=== PATIENT | female | born 1965 | race Caucasian/White ===

== ENCOUNTER 2016-07-04 21:05 | Inpatient (IN) | payer OTHER ==
[~2016-07-04] VITALS: Ht 162.6 cm; Wt 133.8 kg
[2016-07-04 21:18] VITALS: BP 107/65
[2016-07-04] MEDS ORDERED: NACL 0.9% 1,000 ML IV ONE (23:25)
[2016-07-04] MEDS ORDERED: ONDANSETRON 4 MG/2 ML VIAL IVP ONE (23:25)
--- NOTE | 2016-07-04 23:30 | NUR ---
51 Y/O F W/C/O HIGH BLOOD SUGAR , N/V, GEN WEAKNESS, HEADACHE SINCE THURSDAY , SEEN BY PMD LAST THURSDAY. PT ON MONITOR, VSS. RUTH ACUÑA MADE AWARE.
--- NOTE | 2016-07-04 23:30 | NUR ---
Beryl richard in ED - 07/05/16 at 0003 by MARYCRUZ 51 y/o F BIBA C/O ALOC, LOW BP, WITH FENTANYL AND LIDOCAINE PATCHES AND PARAMEDICS REMOVED, BREATHING TREATMENT WAS GIVEN ENROUTE, BS 160 MG/DL. ER MD AND RT AT BEDSIDE.
--- NOTE | 2016-07-04 23:30 | NUR ---
PATIENT TO ER BED 4.
--- NOTE | 2016-07-04 23:35 | NUR ---
PATIENT BEING EVALUATED BY DR. HAWK.
[2016-07-05] MEDS ORDERED: KCL 20 MEQ/WATER INJ PREMIX 100 ML IV ONE (00:20)
[2016-07-05] MEDS ORDERED: MORPHINE SULFATE 4 MG/ML SYR IVP ONE (01:00)
[2016-07-05] MEDS ORDERED: KETOROLAC 30 MG/ML VIAL IVP ONE (01:10)
[2016-07-05] MEDS ORDERED: cefTRIAXone 2,000 MG in DEXTROSE 5% 100 ML IV ONE (03:05)
[2016-07-05] MEDS ORDERED: cefTRIAXone 2,000 MG VIAL ONE (03:27)
[2016-07-05] MEDS ORDERED: LORazepam 2 MG/ML VIAL IVP PRN (03:40)
[2016-07-05] MEDS ORDERED: ONDANSETRON 4 MG/2 ML VIAL IVP PRN (03:40)
[2016-07-05] MEDS ORDERED: HYDROcodone/APAP 5/325 MG 1 TAB TAB PO PRN (03:40)
[2016-07-05] MEDS ORDERED: DEXTROSE 50% 50 ML SYR IVP PRN (03:40)
[2016-07-05] MEDS ORDERED: POTASSIUM CHLORIDE 20% 40 MEQ/15 ML UDC PO SCH (03:45)
--- NOTE | 2016-07-05 03:52 | NUR ---
Patient will be admitted to care of DR TOIBAS. Admited to MED SURG. Will go to [id number]. Belongings list completed. Report to GLADIS TANG.
--- NOTE | 2016-07-05 04:09 | NUR ---
PT TRASFERRED TO MED SURG ROOM 109 A VIA WHEEL CHAIR BY EMT. NO S/S OF DISTRESS NOTED.
[2016-07-05 04:10] VITALS: BP 141/79
--- NOTE | 2016-07-05 04:10 | NUR ---
Admitted from ER , with chief complaint of GENERALIZED WEAKNESS, HEADACHE, HYPERGLYCEMIA 51 y/o, Female, Cooperative, AOX4, ABLE TO VERBALIZE NEEDS. PT C/O HEADACHE. SEE PAIN ASSESSMENT. WILL MEDICATE ORDERED. NO C/O CHEST PAIN, SOB OR S/S OF ACUTE DISTRESS. IV ACCESS ASYMPTOMATIC, PATENT AND INTACT. IVF INFUSING WELL. DISCUSSED AND REVIEWED PLAN OF CARE WITH PT, PT VERBALIZES UNDERSTANDING. oriented to call light, bed, phone,television, bathroom, smoking policy, visiting hours, procedures, ID bracelet on. Belongings list checked. SAFETY MEASURES ENSURED. CALL LIGHT WITHIN REACH. WILL CONTINUE TO MONITOR.
[2016-07-05] MEDS: NACL 0.9% 1,000 ML IV SCH ×3 (05:13→18:24)
--- NOTE | 2016-07-05 05:14 | NUR ---
POTASSIUM ADMINISTERED WITH EDUCATION, PT VERBALIZES UNDERSTANDING AND TOLERATED MED WELL. IVF INFUSING WELL. PT RESTING WELL. SAFETY MEASURES ENSURED. CALL LIGHT WITHIN REACH. WILL CONTINUE TO MONITOR.
--- NOTE | 2016-07-05 05:22 | NUR ---
PT C/O HEADACHE. SEE PAIN ASSESSMENT. MEDICATED WITH APAP. PT TOLERATED WELL. WILL CONTINUE TO MONITOR.
[2016-07-05] MEDS: ACETAMINOPHEN 325 MG TAB PO PRN ×3 (05:24→15:38)
[2016-07-05] MEDS: BLOOD GLUCOSE MONITORING 1 DEV DEV FS SCH ×5 (06:26→20:45)
[2016-07-05] MEDS: INSULIN LISPRO SLIDING SCALE 100 UNITS/ML VIAL SUBQ PRN ×3 (06:27→20:50)
--- NOTE | 2016-07-05 07:32 | NUR ---
RECEIVED REPORT FROM DAYSHIFT NURSE. CONDITION STABLE.
--- NOTE | 2016-07-05 07:33 | NUR ---
RECEIVED REPORT FROM TUBE MOUNTER NURSE AT BEDSIDE. INTRODUCED OURSELVES AND UPDATED THE BOARD. PT IS ALERT AWAKE AND ORIENTED. PT C/O NAUSEA, WILL GIVE ZOFRAN. PT HAS L AC 22 G RUNNING 100 ML/HR. PT REFUSED BREAKFAST. PT STILL HAS SLIGHT HEADACHE, WILL MEDICATE WITH MORNING MEDS. PT HAS NO OTHER COMPLAINTS AT THIS TIME. CALL LIGHT WITHIN REACH. WILL CONTINUE TO MONITOR.
[2016-07-05 08:00] VITALS: BP 107/57
--- NOTE | 2016-07-05 08:23 | NUR ---
PATIENT HAS BEEN SCREENED AND CATEGORIZED HIGH NUTRITION RISK. PATIENT WILL BE SEEN WITHIN 1-2 DAYS OF ADMISSION. 07/05/16-07/06/[address]
[2016-07-05] MEDS ORDERED: CLINICAL MONITORING MC PRN (08:55)
[2016-07-05] MEDS ORDERED: POTASSIUM CHLORIDE 10 MEQ TABER PO SCH (09:19)
[2016-07-05] MEDS: ENOXAPARIN 40 MG/0.4 ML SYR SUBQ SCH (09:32)
--- NOTE | 2016-07-05 09:40 | NUR ---
ADMINISTERED MORNING MEDS AND TYLENOL. PT TOOK MEDS AND TOLERATED WELL. PT STATED NAUSEA IS BETTER. WILL CONTINUE TO MONITOR. PT REPORTED 1 BM.
--- NOTE | 2016-07-05 11:45 | NUR ---
PT IS RESTING IN BED. BS WAS 367. WILL ADMINISTER INSULIN. NO OTHER COMPLAINTS AT THIS TIME. WILL CONTINUE TO MONITOR.
[2016-07-05 12:00] VITALS: BP 107/57
--- NOTE | 2016-07-05 12:45 | NUR ---
PT IS SITTING AT THE EDGE OF BED AND EATING LUNCH. NO COMPLAINTS AT THIS TIME. CALL LIGHT WITHIN REACH. WILL CONTINUE TO MONITOR.
--- NOTE | 2016-07-05 14:00 | NUR ---
PT WAS MOVED FROM ROOM 109A TO 110A. PT TOLERATED WELL. WILL CONTINUE TO MONITOR.
--- NOTE | 2016-07-05 14:39 | NUR ---
07/05/16 RD INITIAL ASSESSMENT COMPLETED PLEASE REFER TO NUTRITION ASSESSMENT UNDER CARE ACTIVITY FOR ESTIMATED NUTRITIONAL NEEDS. RD RECOMMENDATIONS: 1. CONTINUE CCHO 60 GM DIET MEDICALLY APPROPRIATE. 2. RD LEFT DM DIET EDUCATION ON PT BEDSIDE, RD WILL FOLLOW UP DURING NEXT VISIT. 3. ENCOURAGE INCREASED PO INTAKE PT DID NOT CONSUME BREAKFAST AND PT REPORTING UNINTENTIONAL WEIGHT LOSS. 4. RD WILL F/U 2-3 DAYS; HIGH RISK. KEITH [address]TON RD
--- NOTE | 2016-07-05 14:39 | NUR ---
PT IS RESTING IN BED. FAMILY AT BEDSIDE. NO COMPLAINTS AT THIS TIME. CALL LIGHT WITHIN REACH. WILL CONTINUE TO MONITOR.
--- NOTE | 2016-07-05 15:40 | NUR ---
PT C/O HEADACHE. ADMINISTERED PAIN MED. PT TOLERATED WELL. WILL REASSESS.
[2016-07-05 16:00] VITALS: BP 124/71
--- NOTE | 2016-07-05 17:00 | NUR ---
PT IS RESTING IN BED. NO COMPLAINTS AT THIS TIME. WILL CONTINUE TO MONITOR.
[2016-07-05] MEDS: HYDROcodone/APAP 5/325 MG 1 TAB TAB PO PRN (18:23)
--- NOTE | 2016-07-05 19:30 | NUR ---
GAVE REPORT TO CHARGE NURSE OF PAID SEARCH MARKETING ANALYST. PT IN STABLE CONDITION.
[2016-07-05 20:00] VITALS: BP 110/71
--- NOTE | 2016-07-05 20:00 | NUR ---
RECEIVED REPORT FROM CHARGE NURSE AWAKE AND WATCHING TV. A/O X 4. DENIES ANY PAIN AT THIS TIME. CALL LIGHT WITH IN REACH. CARE PLANS DISCUSSED WITH HER FOR THE NIGHT. ENCOURAGE TO CALL FOR HELP OR IF IN ANY PAIN. "OK" TELEMETRY MONITORING. DX. OF CHEST PAIN. Addendum: 07/05/16 at 2149 by Kristi Vaughan RN DX. OF UTI.
--- NOTE | 2016-07-05 21:30 | NUR ---
SLEEPING AT THIS TIME. NO SOB. NO RESTLESSNESS NOTED. CALL LIGHT WITH IN REACH.
--- NOTE | 2016-07-06 00:13 | NUR ---
SLEEPING AT THIS TIME. CALL LIGHT WITH IN REACH.
[2016-07-06 00:49] VITALS: BP 126/68
[2016-07-06] MEDS: NACL 0.9% 1,000 ML IV SCH (03:39)
--- NOTE | 2016-07-06 03:46 | NUR ---
CHECKED ON PT.SLEEPING. NO RESTLESSNESS. CALL LIGHT AT BEDSIDE. TELEMETRY MONITORING.
[2016-07-06 05:02] VITALS: BP 98/52
--- NOTE | 2016-07-06 05:37 | NUR ---
SLEPT WELL THIS SHIFT. WAKES UP EASILY WHEN TOUCHED. NO COMPLAINTS DONE. USES CALL LIGHT FOR HELP. A/O X 4. ROM X 4.
[2016-07-06] MEDS: BLOOD GLUCOSE MONITORING 1 DEV DEV FS SCH ×2 (06:15→11:56)
[2016-07-06] MEDS: INSULIN LISPRO SLIDING SCALE 100 UNITS/ML VIAL SUBQ PRN ×2 (06:16→11:58)
--- NOTE | 2016-07-06 07:23 | NUR ---
RECEIVED PT REPORT FROM RIGGING UP MAN NURSE AT BEDSIDE. INTRODUCED OURSELVES AND UPDATED THE BOARD. PT IS ALERT AWAKE AND ORIENTED. PT STATED SHE HAS NO PAIN AND NO OTHER COMPLAINTS AT THIS TIME. VS WNL. PT SAT UP AT EDGE OF BED FOR BREAKFAST. PT HAS IV ON L AC 22 G RUNNING NS 100ML/HR. CALL LIGHT WITHIN REACH. WILL CONTINUE TO MONITOR.
--- NOTE | 2016-07-06 07:50 | NUR ---
RECEIVED PT REPORT FROM FIELD SALES SPECIALIST NURSE AT BEDSIDE. INTRODUCED OURSELVES AND UPDATED THE BOARD. PT IS ALERT AWAKE AND ORIENTED. Addendum: 07/06/16 at 0751 by Mike Corral RN DUPLICATE
[2016-07-06 08:00] VITALS: BP 138/77
[2016-07-06] MEDS: ENOXAPARIN 40 MG/0.4 ML SYR SUBQ SCH (09:20)
--- NOTE | 2016-07-06 09:20 | NUR ---
DR. TOBIAS EXAMINED PT IN ROOM. REPORTED TO PT'S EPISODE OF BBB. DR ORDERED REPEAT ALBUMIN AND AN EKG.
[2016-07-06] MEDS: HYDROcodone/APAP 5/325 MG 1 TAB TAB PO PRN (09:30)
--- NOTE | 2016-07-06 10:25 | NUR ---
EKG WAS DONE AT BEDSIDE. PT TOLERATED WELL. WILL CONTINUE TO MONITOR.
--- NOTE | 2016-07-06 10:30 | NUR ---
TRIED PAGING DR. TOBIAS REGARDING EKG RESULT. DR'S PAGER NOT ACCEPTING MESSAGE AT THIS TIME. WILL TRY AGAIN.
--- NOTE | 2016-07-06 10:45 | NUR ---
SPOKE TO DR. TOBIAS REGARDING EKG RESULT. DR. TOBIAS STATED PT CAN GO HOME TODAY.
[2016-07-06] MEDS ORDERED: GLUCOPHAGE500 MG PO (11:01)
[2016-07-06] MEDS ORDERED: APIDRA SOLOS100 U/ML IJ (11:01)
[2016-07-06] MEDS ORDERED: LANTUS INS100 UNITS/ SUBQ (11:01)
[2016-07-06] MEDS ORDERED: LOTENSIN40 MG PO (11:21)
[2016-07-06] MEDS ORDERED: LORATADINE10 M2 PO (11:21)
[2016-07-06] MEDS ORDERED: FUROSEMIDE40 M1 PO (11:21)
[2016-07-06] MEDS ORDERED: AMLODIPINE BESY10 M1 PO (11:21)
[2016-07-06] MEDS ORDERED: JANUVIA100 MG PO (11:21)
[2016-07-06] MEDS ORDERED: OMEGA-31000 M1 PO (11:21)
[2016-07-06] MEDS ORDERED: SIMVASTATIN20 M1 PO (11:21)
[2016-07-06] MEDS ORDERED: KEFLEX250 MG PO ×2 (11:31→11:36)
[2016-07-06 12:00] VITALS: BP 130/71
--- NOTE | 2016-07-06 12:00 | NUR ---
WENT OVER D/C PAPERWORK WITH PT. PT SIGNED ALL APPROPRIATE PAPERWORK AND RECEIVED PRESCRIPTION. PT VERBALIZED UNDERSTANDING.
--- NOTE | 2016-07-06 12:10 | NUR ---
WHEELED PT OUT OF HOSPITAL. ACCOMPANIED BY DAUGHTER. ALL BANDS AND IV REMOVED. PT IN STABLE CONDITION.
--- NOTE | 2016-07-09 08:32 | NUR ---
FAXED RETRO REVIEW TO [facility] [phone] PHONE [phone]
== END 2016-07-06 12:10 | disposition home or self-care (01) | DRG 460 ==
LOC: MED 21:05 → MTU 07-05 03:42
PROVIDERS: ADMIT Hospitalist; ATTEND Hospitalist
DX: N17.9 Acute kidney failure, unspecified (principal); E11.22 Type 2 diabetes mellitus with diabetic chronic kidney disease; N12 Tubulo-interstitial nephritis, not specified as acute or chronic; Z68.43 Body mass index [BMI] 50.0-59.9, adult; I12.9 Hypertensive chronic kidney disease with stage 1 through stage 4 chronic kidney disease, or unspecified chronic kidney disease; N18.9 Chronic kidney disease, unspecified; E11.9 Type 2 diabetes mellitus without complications; E87.6 Hypokalemia; E86.0 Dehydration; E66.9 Obesity, unspecified; E78.5 Hyperlipidemia, unspecified; Z79.84 Long term (current) use of oral hypoglycemic drugs

== ENCOUNTER 2017-02-02 14:37 | Emergency (ER) | payer OTHER ==
[~2017-02-02] VITALS: Ht 165.1 cm; Wt 144.4 kg
[~2017-02-02 14:37] MED LIST: AMLO10TA3 PO; BENA40TA PO; CEPH250C16 PO; FISH100053 PO; FURO40TA9 PO; LANTUS SUBQ; LORA10OD44 PO; METF500T PO; SIMV20TA6 PO; SITA100T8 PO; [UNRECOGNIZED DRUG - CODE] IJ
[2017-02-02 14:45] VITALS: BP 161/97
--- NOTE | 2017-02-02 15:10 | NUR ---
Pt ambulated to bed 1.
[2017-02-02] MEDS ORDERED: FUROSEMIDE 40 MG TAB PO ONE (15:30)
--- NOTE | 2017-02-02 15:44 | NUR ---
PATIENT CAME IN VIA SELF C/O BILATERAL BUTTOCK PAIN THAT RADIATES TO BILATERAL LOWER LEGS. A&OX4. ABLE TO VERBALIZE NEEDS. NO RESPIRATORY DISTRESS OR CHEST PAIN. MD NOTIFIED.
--- NOTE | 2017-02-02 15:54 | NUR ---
Ultrasound at bedside.
[2017-02-02 16:45] VITALS: BP 164/90
--- NOTE | 2017-02-02 16:45 | NUR ---
Note undone in EDM - 02/02/17 at 1650 by MEDSS Patient discharged with v/s stable. Patient BP 164/90 at discharge. Patient states no headache, dizziness, or shortness of breath at this time. ER MD Dr. Miller notified and ok to discharge. Written and verbal after care instructions given and explained. Patient alert, oriented and verbalized understanding of instructions. Ambulatory with steady gait. All questions addressed prior to discharge. ID band removed. Patient advised to follow up with PMD. Rx of EDEMA WEAR FOR LOWER LEG SWELLING given. Patient educated on indication of medication including possible reaction and side effects. Opportunity to ask questions provided and answered.
--- NOTE | 2017-02-02 17:19 | NUR ---
Note hilary in EDM - 02/02/17 at 1722 by MEDJ PATIENT CAME IN VIA SELF C/O BILATERAL BUTTOCK PAIN THAT RADIATES TO BILATERAL LOWER LEGS. A&OX4. ABLE TO VERBALIZE NEEDS. NO RESPIRATORY DISTRESS OR CHEST PAIN. NOTIFIED.
== END 2017-02-02 16:45 | disposition home or self-care (01) ==
LOC: MED 14:37
DX: R60.0 Localized edema (principal); E66.01 Morbid (severe) obesity due to excess calories; E11.9 Type 2 diabetes mellitus without complications; Z79.4 Long term (current) use of insulin; Z79.899 Other long term (current) drug therapy; Z79.84 Long term (current) use of oral hypoglycemic drugs
CPT/HCPCS: 93970; 99284; Q0092